=== PATIENT | male | born 1945 | race Caucasian/White ===

== ENCOUNTER 2019-08-03 09:10 | Inpatient (IN) ==
[2019-08-03] MEDS ORDERED: DILTIAZEM 50 MG/10 ML VIAL IV STA (09:58)
[2019-08-03] MEDS: dilTIAZem Drip 125 MG/125 ML PREMIX IV SCH (10:20)
[2019-08-03 10:27] LABS: Basophils % 0.4 % (0.0-0.8); Eosinophils % 0.7 % (0.00-10.9); Hemoglobin 13.5 GM/DL (14.0-18.0); Immature Granulocytes % 0.5 %; Immature Granulocytes Absolute 0.03 #; Lymphocytes % 16.8 % (21.2-54.2); Mean Corpuscular HGB Conc 33.8 GM/DL (32-36); Mean Corpuscular Volume 92.4 FL (87-102); Mean Platelet Volume 9.7 FL (9.6-12.0); Monocytes % 5.4 % (1.7-12.7); Neutrophils % 76.2 % (38.7-73.9); Platelet Count 129 T/CUMM (130-400); Red Blood Count 4.33 MC/CUMM (3.8-5.5); Red Cell Distribution Width 13.8 % (9.3-17.3); White Blood Count 5.7 T/CUMM (4-12)
[2019-08-03 10:41] LABS: Partial Thromboplastin Time 23.2 SECS (20.8-36.0)
[2019-08-03 10:56] LABS: Albumin 3.7 G/DL (3.4-5.0); Bilirubin,Total 0.5 MG/DL (0.2-1.0); Calcium 8.9 MG/DL (8.5-10.1); Osmolality,Calculated 284.7 MOS/KG (273-304); Thyroid Stimulating Hormone 0.283 uIU/ml (0.358-3.74); Total Protein 7.7 G/DL (6.4-8.3)
[2019-08-03] MEDS ORDERED: ENOXAPARIN 100 MG/ML SYRINGE SUBCUT STA (11:05)
[2019-08-03] MEDS ORDERED: ACETAMINOPHEN 325 MG TABLET PO PRN (11:18)
[2019-08-03] MEDS ORDERED: BISACODYL 5 MG TABLET PO PRN (11:18)
[2019-08-03] MEDS ORDERED: guaiFENesin/DM ER 600-30 MG TABLET PO PRN (11:18)
[2019-08-03] MEDS ORDERED: MORPHINE 4 MG/1 ML VIAL IV PRN (11:18)
[2019-08-03] MEDS ORDERED: LACTULOSE 20 GM/30 ML UDCUP PO PRN (11:18)
[2019-08-03] MEDS ORDERED: ZALEPLON 5 MG CAPSULE PO PRN (11:18)
[2019-08-03] MEDS ORDERED: ONDANSETRON 4 MG/2 ML VIAL IV PRN (11:18)
[2019-08-03] MEDS ORDERED: MAGNESIUM SULF RIDER 2 GM in PREMIX 1 EACH IV PRN (11:18)
[2019-08-03] MEDS ORDERED: MAGNESIUM SULF RIDER 4 GM in PREMIX 1 EACH IV PRN (11:18)
[2019-08-03] MEDS ORDERED: POTASSIUM CHLORIDE 20 MEQ TABLET PO PRN (11:18)
[2019-08-03 11:50] LABS: Free T4 (Free Thyroxine) 1.2 NG/DL (0.76-1.46)
[2019-08-03] MEDS: ENOXAPARIN 40 MG/0.4 ML SYRINGE SUBCUT SCH (12:47)
[2019-08-03] MEDS ORDERED: NITROGLYCERIN SL 0.4 MG TABLET SL PRN (13:32)
[2019-08-03 14:00] LABS: Troponin I < 0.015 NG/ML (0.00-0.045)
[2019-08-03 17:50] LABS: Troponin I < 0.015 NG/ML (0.00-0.045)
[2019-08-03] MEDS ORDERED: FENOFIBRATE 145 MG TABLET PO SCH (21:00)
[2019-08-03] MEDS ORDERED: SERTRALINE 25 MG TABLET PO SCH (21:00)
[2019-08-03] MEDS ORDERED: INSULIN GLARGINE 100 UNIT/ML SUBCUT SCH (21:00)
[2019-08-03] MEDS ORDERED: ROSUVASTATIN 10 MG TABLET PO SCH (21:00)
[2019-08-03] MEDS ORDERED: DUTASTERIDE 0.5 MG CAPSULE PO SCH (21:00)
[2019-08-03] MEDS: DICYCLOMINE 20 MG TABLET PO SCH (21:07)
[2019-08-03] MEDS: FAMOTIDINE 20 MG TABLET PO SCH (21:07)
[2019-08-03] MEDS: MAGNESIUM CHLORIDE 64 MG TABLET PO SCH (21:09)
[2019-08-03] MEDS: AMITRIPTYLINE PO SCH (21:10)
[2019-08-03] MEDS: PERPHENAZINE PO SCH (21:10)
[2019-08-03] MEDS: GLIMEPIRIDE 2 MG TABLET PO SCH (21:10)
[2019-08-04 04:54] LABS: Basophils % 0.3 % (0.0-0.8); Eosinophils # 0.1 10*3/uL (0.0-0.87); Eosinophils % 1.4 % (0.00-10.9); Hematocrit 36.4 VOL% (42.0-52.0); Hemoglobin 12.1 GM/DL (14.0-18.0); Immature Granulocytes % 0.9 %; Immature Granulocytes Absolute 0.06 #; Lymphocytes # 1.6 10*3/uL (1.4-4.0); Lymphocytes % 24.9 % (21.2-54.2); Mean Corpuscular HGB Conc 33.2 GM/DL (32-36); Mean Corpuscular Volume 92.6 FL (87-102); Mean Platelet Volume 9.6 FL (9.6-12.0); Monocytes % 7.4 % (1.7-12.7); Neutrophils % 65.1 % (38.7-73.9); Platelet Count 120 T/CUMM (130-400); Red Blood Count 3.93 MC/CUMM (3.8-5.5); Red Cell Distribution Width 13.7 % (9.3-17.3); White Blood Count 6.4 T/CUMM (4-12)
[2019-08-04 05:21] LABS: Osmolality,Calculated 284.3 MOS/KG (273-304)
[2019-08-04] MEDS ORDERED: LEVOTHYROXINE 200 MCG TABLET PO SCH (06:30)
[2019-08-04] MEDS ORDERED: BISOPROLOL 5 MG TABLET PO SCH (09:00)
[2019-08-04] MEDS ORDERED: FLUDROCORTISONE 0.1 MG TABLET PO SCH (09:00)
[2019-08-04] MEDS ORDERED: ASPIRIN EC 325 MG TABLET PO SCH (09:00)
[2019-08-04] MEDS ORDERED: PANTOPRAZOLE 40 MG TABLET PO SCH (09:00)
[2019-08-04 09:15] LABS: Barbiturates Screen,Urine Negative (Negative); Benzodiazepines Screen,Urine Negative (Negative); Cannabinoid Screen,Urine Negative (Negative); Opiate Screen,Urine Negative (Negative); Phencyclidine Screen,Urine Negative (Negative)
[2019-08-04] MEDS: MAGNESIUM CHLORIDE 64 MG TABLET PO SCH (09:34)
[2019-08-04] MEDS: AMITRIPTYLINE PO SCH (09:35)
[2019-08-04] MEDS: PERPHENAZINE PO SCH (09:35)
[2019-08-04] MEDS: FAMOTIDINE 20 MG TABLET PO SCH (09:38)
[2019-08-04] MEDS: GLIMEPIRIDE 2 MG TABLET PO SCH (09:38)
[2019-08-04] MEDS: DICYCLOMINE 20 MG TABLET PO SCH (11:11)
[2019-08-04] MEDS: dilTIAZem Drip 125 MG/125 ML PREMIX IV SCH (11:17)
[2019-08-04 12:43] VITALS: BP 146/72
[2019-08-04] MEDS: ENOXAPARIN 40 MG/0.4 ML SYRINGE SUBCUT SCH (13:05)
== END 2019-08-04 13:08 | disposition home or self-care (01) | DRG 310 ==
LOC: N.ED 09:10 → N.EDINP 11:11 → N.TELEN 11:20
PROVIDERS: ADMIT Internal Medicine Cardiovascular Disease; ATTEND Internal Medicine Cardiovascular Disease

== ENCOUNTER 2021-12-14 15:38 | Inpatient (IN) ==
[2021-12-14] MEDS ORDERED: GLUCAGON 1 MG VIAL IM PRN (15:46)
[2021-12-14] MEDS ORDERED: MORPHINE 2 MG/1 ML SYRINGE IV PRN (15:46)
[2021-12-14] MEDS ORDERED: POTASSIUM CHLORIDE 20 MEQ TABLET PO PRN (15:46)
[2021-12-14] MEDS ORDERED: ONDANSETRON 4 MG/2 ML VIAL IV PRN (15:46)
[2021-12-14] MEDS ORDERED: MAGNESIUM SULF RIDER 4 GM/100 ML PREMIX IV PRN (15:46)
[2021-12-14] MEDS ORDERED: DEXTROSE 10% 25 GM/250 ML BAG IV PRN (15:46)
[2021-12-14] MEDS ORDERED: MAGNESIUM SULF RIDER 2 GM/50 ML PREMIX IV PRN (15:46)
[2021-12-14] MEDS ORDERED: ACETAMINOPHEN 325 MG TABLET PO PRN (15:46)
[2021-12-14] MEDS ORDERED: NITROGLYCERIN SL 0.4 MG TABLET SL PRN (15:52)
[2021-12-14] MEDS ORDERED: DILTIAZEM 50 MG/10 ML VIAL IV ONE (15:53)
[2021-12-14] MEDS ORDERED: ZALEPLON 5 MG CAPSULE PO PRN (16:01)
[2021-12-14] MEDS: DILTIAZEM INJ 100 MG in SODIUM CHLORIDE 0.9% 100 ML IV SCH (17:03)
[2021-12-14] MEDS: INSULIN LISPRO 100 UNIT/ML SUBCUT SCH ×2 (17:23→22:35)
[2021-12-14] MEDS: metFORMIN 500 MG TABLET PO SCH (17:24)
[2021-12-14 18:01] LABS: Albumin 3.6 G/DL (3.4-5.0); Bilirubin,Total 0.7 MG/DL (0.20-1.00); Calcium 9.3 MG/DL (8.5-10.1); Osmolality,Calculated 282.1 MOS/KG (273-304); Potassium 3.6 MMOL/L (3.5-5.1); Total Protein 7.6 G/DL (6.4-8.2)
[2021-12-14] MEDS: MAGNESIUM OXIDE 400 MG TABLET PO SCH (18:02)
[2021-12-14] MEDS: GLIMEPIRIDE 2 MG TABLET PO SCH (21:31)
[2021-12-14] MEDS: DUTASTERIDE 0.5 MG CAPSULE PO SCH (21:31)
[2021-12-14] MEDS: FENOFIBRATE 145 MG TABLET PO SCH (21:31)
[2021-12-14] MEDS: APIXABAN 5 MG TABLET PO SCH (21:31)
[2021-12-14] MEDS: ROSUVASTATIN 10 MG TABLET PO SCH (21:31)
[2021-12-14] MEDS: AMITRIPTYLINE PO SCH (21:35)
[2021-12-14] MEDS: PERPHENAZINE PO SCH (21:35)
[2021-12-14] MEDS: INSULIN GLARGINE 100 UNIT/ML SUBCUT SCH (22:35)
[2021-12-15 05:18] LABS: Risk Ratio 5.25; VLDL Cholesterol 31.4 MG/DL
[2021-12-15] MEDS ORDERED: DIPHENOXYLATE/ATROPINE 2.5-0.025 MG TABLET PO PRN (05:36)
[2021-12-15] MEDS ORDERED: LEVOTHYROXINE 200 MCG TABLET PO SCH (06:00)
[2021-12-15 06:15] LABS: Free T4 (Free Thyroxine) 1.67 NG/DL (0.76-1.46); Thyroid Stimulating Hormone 0.009 uIU/ml (0.358-3.74)
[2021-12-15] MEDS ORDERED: LEVOTHYROXINE 100 MCG TABLET PO SCH (06:30)
[2021-12-15] MEDS ORDERED: ASPIRIN EC 325 MG TABLET PO SCH (09:00)
[2021-12-15] MEDS: INSULIN LISPRO 100 UNIT/ML SUBCUT SCH ×4 (10:21→20:37)
[2021-12-15] MEDS: BISOPROLOL 5 MG TABLET PO SCH (10:21)
[2021-12-15] MEDS: MAGNESIUM OXIDE 400 MG TABLET PO SCH ×2 (10:22→20:35)
[2021-12-15] MEDS: PANTOPRAZOLE 40 MG TABLET PO SCH (10:22)
[2021-12-15] MEDS: metFORMIN 500 MG TABLET PO SCH ×2 (10:22→16:51)
[2021-12-15] MEDS: FLUDROCORTISONE 0.1 MG TABLET PO SCH (10:22)
[2021-12-15] MEDS: APIXABAN 5 MG TABLET PO SCH ×2 (10:22→20:36)
[2021-12-15] MEDS: ASPIRIN EC 81 MG TABLET PO SCH (10:22)
[2021-12-15] MEDS: DILTIAZEM 60 MG TABLET PO SCH ×5 (10:23→20:35)
[2021-12-15] MEDS: FUROSEMIDE 40 MG/4 ML VIAL IV SCH ×2 (10:23→16:51)
[2021-12-15] MEDS: GLIMEPIRIDE 2 MG TABLET PO SCH ×2 (10:23→20:37)
[2021-12-15] MEDS: PERPHENAZINE PO SCH ×2 (11:17→20:30)
[2021-12-15] MEDS: AMITRIPTYLINE PO SCH ×2 (11:17→20:30)
[2021-12-15] MEDS: DILTIAZEM INJ 100 MG in SODIUM CHLORIDE 0.9% 100 ML IV SCH (17:17)
[2021-12-15] MEDS: DUTASTERIDE 0.5 MG CAPSULE PO SCH (20:35)
[2021-12-15] MEDS: ROSUVASTATIN 10 MG TABLET PO SCH (20:35)
[2021-12-15] MEDS: FENOFIBRATE 145 MG TABLET PO SCH (20:37)
[2021-12-15] MEDS: INSULIN GLARGINE 100 UNIT/ML SUBCUT SCH (20:38)
[2021-12-16 05:35] LABS: Basophils % 0.2 % (0.0-0.8); Eosinophils # 0.1 10*3/uL (0.0-0.87); Eosinophils % 1.4 % (0.00-10.9); Hematocrit 40.7 VOL% (42.0-52.0); Hemoglobin 13.3 GM/DL (14.0-18.0); Immature Granulocytes % 0.3 %; Immature Granulocytes Absolute 0.02 #; Lymphocytes # 1.4 10*3/uL (1.4-4.0); Mean Corpuscular HGB Conc 32.7 GM/DL (32-36); Mean Corpuscular Volume 95.5 FL (87-102); Mean Platelet Volume 9.8 FL (9.6-12.0); Monocytes % 7.5 % (1.7-12.7); Neutrophils % 67.6 % (38.7-73.9); Platelet Count 174 T/CUMM (130-400); Red Blood Count 4.26 MC/CUMM (3.8-5.5); Red Cell Distribution Width 13.1 % (9.3-17.3); White Blood Count 6.3 T/CUMM (4-12)
[2021-12-16] MEDS: LEVOTHYROXINE 125 MCG TABLET PO SCH (05:56)
[2021-12-16] MEDS: INSULIN LISPRO 100 UNIT/ML SUBCUT SCH ×4 (07:59→20:29)
[2021-12-16] MEDS: DILTIAZEM 60 MG TABLET PO SCH ×4 (09:23→20:29)
[2021-12-16] MEDS: GLIMEPIRIDE 2 MG TABLET PO SCH ×2 (09:23→20:29)
[2021-12-16] MEDS: APIXABAN 5 MG TABLET PO SCH ×2 (09:23→20:29)
[2021-12-16] MEDS: MAGNESIUM OXIDE 400 MG TABLET PO SCH ×2 (09:23→20:28)
[2021-12-16] MEDS: metFORMIN 500 MG TABLET PO SCH ×2 (09:23→16:30)
[2021-12-16] MEDS: BISOPROLOL 5 MG TABLET PO SCH ×2 (09:24→20:28)
[2021-12-16] MEDS: PANTOPRAZOLE 40 MG TABLET PO SCH (09:24)
[2021-12-16] MEDS: ASPIRIN EC 81 MG TABLET PO SCH (09:24)
[2021-12-16] MEDS: FLUDROCORTISONE 0.1 MG TABLET PO SCH (09:24)
[2021-12-16] MEDS: FUROSEMIDE 40 MG/4 ML VIAL IV SCH ×2 (09:24→16:31)
[2021-12-16 10:32] LABS: Calcium 9.5 MG/DL (8.5-10.1); Osmolality,Calculated 278.5 MOS/KG (273-304); Potassium 3.8 MMOL/L (3.5-5.1)
[2021-12-16] MEDS: AMITRIPTYLINE PO SCH ×2 (11:00→20:30)
[2021-12-16] MEDS: PERPHENAZINE PO SCH ×2 (11:00→20:30)
[2021-12-16] MEDS: DILTIAZEM INJ 100 MG in SODIUM CHLORIDE 0.9% 100 ML IV SCH (15:39)
[2021-12-16] MEDS: LORATADINE 10 MG TABLET PO SCH (18:19)
[2021-12-16] MEDS: ROSUVASTATIN 10 MG TABLET PO SCH (20:29)
[2021-12-16] MEDS: FENOFIBRATE 145 MG TABLET PO SCH (20:29)
[2021-12-16] MEDS: lisinopriL 5 MG TABLET PO SCH (20:29)
[2021-12-16] MEDS: DUTASTERIDE 0.5 MG CAPSULE PO SCH (20:29)
[2021-12-16] MEDS: INSULIN GLARGINE 100 UNIT/ML SUBCUT SCH (20:30)
[2021-12-17] MEDS: LEVOTHYROXINE 125 MCG TABLET PO SCH (05:47)
[2021-12-17 06:13] LABS: Calcium 9.1 MG/DL (8.5-10.1); Osmolality,Calculated 279.8 MOS/KG (273-304); Potassium 3.5 MMOL/L (3.5-5.1)
[2021-12-17] MEDS: FUROSEMIDE 40 MG/4 ML VIAL IV SCH ×2 (09:46→17:36)
[2021-12-17] MEDS: INSULIN LISPRO 100 UNIT/ML SUBCUT SCH ×4 (09:46→20:30)
[2021-12-17] MEDS: PANTOPRAZOLE 40 MG TABLET PO SCH (09:47)
[2021-12-17] MEDS: lisinopriL 5 MG TABLET PO SCH ×2 (09:47→20:29)
[2021-12-17] MEDS: BISOPROLOL 5 MG TABLET PO SCH ×2 (09:47→20:29)
[2021-12-17] MEDS: LORATADINE 10 MG TABLET PO SCH (09:47)
[2021-12-17] MEDS: FLUDROCORTISONE 0.1 MG TABLET PO SCH (09:47)
[2021-12-17] MEDS: metFORMIN 500 MG TABLET PO SCH ×2 (09:47→17:36)
[2021-12-17] MEDS: MAGNESIUM OXIDE 400 MG TABLET PO SCH ×2 (09:47→20:29)
[2021-12-17] MEDS: GLIMEPIRIDE 2 MG TABLET PO SCH ×2 (09:47→20:29)
[2021-12-17] MEDS: APIXABAN 5 MG TABLET PO SCH ×2 (09:47→20:29)
[2021-12-17] MEDS: ASPIRIN EC 81 MG TABLET PO SCH (09:48)
[2021-12-17] MEDS: DILTIAZEM 60 MG TABLET PO SCH (09:48)
[2021-12-17] MEDS: PERPHENAZINE PO SCH ×2 (11:11→20:30)
[2021-12-17] MEDS: AMITRIPTYLINE PO SCH ×2 (11:11→20:30)
[2021-12-17] MEDS: DILTIAZEM INJ 100 MG in SODIUM CHLORIDE 0.9% 100 ML IV SCH (17:33)
[2021-12-17] MEDS: ROSUVASTATIN 10 MG TABLET PO SCH (20:29)
[2021-12-17] MEDS: DUTASTERIDE 0.5 MG CAPSULE PO SCH (20:29)
[2021-12-17] MEDS: FENOFIBRATE 145 MG TABLET PO SCH (20:29)
[2021-12-17] MEDS: DILTIAZEM CD 120 MG CAPSULE PO SCH (20:29)
[2021-12-17] MEDS: INSULIN GLARGINE 100 UNIT/ML SUBCUT SCH (20:30)
[2021-12-18] MEDS: LEVOTHYROXINE 125 MCG TABLET PO SCH (05:29)
[2021-12-18 06:34] LABS: Calcium 9.4 MG/DL (8.5-10.1); Osmolality,Calculated 286.4 MOS/KG (273-304); Potassium 3.6 MMOL/L (3.5-5.1)
[2021-12-18] MEDS: INSULIN LISPRO 100 UNIT/ML SUBCUT SCH ×2 (09:45→12:06)
[2021-12-18] MEDS: metFORMIN 500 MG TABLET PO SCH (09:54)
[2021-12-18] MEDS: ASPIRIN EC 81 MG TABLET PO SCH (09:55)
[2021-12-18] MEDS: GLIMEPIRIDE 2 MG TABLET PO SCH (09:55)
[2021-12-18] MEDS: FLUDROCORTISONE 0.1 MG TABLET PO SCH (09:55)
[2021-12-18] MEDS: MAGNESIUM OXIDE 400 MG TABLET PO SCH (09:55)
[2021-12-18] MEDS: LORATADINE 10 MG TABLET PO SCH (09:55)
[2021-12-18] MEDS: APIXABAN 5 MG TABLET PO SCH (09:55)
[2021-12-18] MEDS: DILTIAZEM CD 120 MG CAPSULE PO SCH (09:55)
[2021-12-18] MEDS: lisinopriL 5 MG TABLET PO SCH (09:56)
[2021-12-18] MEDS: BISOPROLOL 5 MG TABLET PO SCH (09:56)
[2021-12-18] MEDS: AMITRIPTYLINE PO SCH (09:56)
[2021-12-18] MEDS: PANTOPRAZOLE 40 MG TABLET PO SCH (09:56)
[2021-12-18] MEDS: FUROSEMIDE 40 MG/4 ML VIAL IV SCH (09:56)
[2021-12-18] MEDS: PERPHENAZINE PO SCH (09:56)
[2021-12-18 11:32] VITALS: BP 133/63
== END 2021-12-18 14:48 | disposition home or self-care (01) | DRG 291 ==
LOC: N.TELEN 16:12
PROVIDERS: ADMIT Family Medicine; ATTEND Family Medicine